=== PATIENT | male | born 1955 | race Caucasian/White ===

== ENCOUNTER 2022-07-06 15:59 | Inpatient (IN) | payer OTHER ==
[2022-07-06 16:59] LABS: Hemoglobin 7.3 g/dL (13.5-17.5); Mean Corpuscular HGB CONC 28.7 g/dL (32.0-36.0); Mean Corpuscular Hemoglobin 15.8 pg (27.0-33.0); Mean Corpuscular Volume 54.9 fl (81.2-95.1); Platelet Count 376 10x3/uL (150-450); RBC Distribution Width 22.7 % (11.5-14.5); Red Blood Cell (RBC) Count 4.63 10x6/uL (4.32-5.72); White Blood Cell (WBC) Count 25.5 10x3/uL (3.5-10.5)
[2022-07-06] MEDS ORDERED: Diltiazem 125 MG/25 ML ONE (17:02)
[2022-07-06 17:06] LABS: MDiff Complete? YES
[2022-07-06 17:15] LABS: ALT (SGPT) 14 U/L (8-55); AST (SGOT) 12 U/L (5-34); Albumin 3.4 g/dL (3.4-4.8); Alkaline Phosphatase 88 U/L (40-110); Anion Gap 14 mmol/L (10-20); BUN (Urea Nitrogen) 31 mg/dL (8.4-25.7); Bilirubin, Total 0.9 mg/dL (0.2-1.2); Calc. Creatinine Clearance 0 mL/min (70-130); Calcium 7.9 mg/dL (7.8-10.44); Carbon Dioxide 24 mmol/L (23-31); Chloride 101 mmol/L (98-107); Estimated GFR 93; Globulin 2.2 g/dL (2.4-3.5); Glucose 120 mg/dL (80-115); Potassium 3.5 mmol/L (3.5-5.1); Protein, Total 5.6 g/dL (5.8-8.1); Sodium 135 mmol/L (136-145)
[2022-07-06 17:38] LABS: CKMB 0.5 ng/mL (0-6.6)
[2022-07-06] MEDS ORDERED: cefTRIAXone\\ROCEPHIN 2 GM VIAL ONE (17:51)
[2022-07-06 18:20] LABS: Band 7 % (5-11); Lymphocytes 2 % (21-51); Monocytes 1 % (0-10); Neutrophil 90 % (42-75)
[2022-07-06 18:21] LABS: Anisocytosis SLIGHT = 6-15 cells (100X) (0-5/hpf); Hypochromia SLIGHT = 6-15 cells (100X) (0-5/hpf); Platelet Morphology Comment Appears Adequate
[2022-07-06 20:09] LABS: Troponin I 0.108 ng/mL (< 0.028)
[2022-07-06] MEDS ORDERED: Senokot S 8.6-50 MG TAB PO PRN (20:13)
[2022-07-06] MEDS ORDERED: Dextrose 5% in Water 1,000 ML IV PRN (20:13)
[2022-07-06] MEDS ORDERED: HYDROcodone/Acetaminophen 5/325 mg Tablet PO PRN (20:13)
[2022-07-06] MEDS ORDERED: Calcium Carbonate 500 MG ChewTAB PO PRN (20:13)
[2022-07-06] MEDS ORDERED: Ondansetron PF 4 MG/2 ML Vial IVP PRN (20:13)
[2022-07-06] MEDS ORDERED: Guaifenesin DM 100-10/5 ML UDCUP PO PRN (20:13)
[2022-07-06] MEDS ORDERED: Dextrose 50% Abboject 50 ML SYRINGE SLOW IVP PRN (20:13)
[2022-07-06] MEDS ORDERED: Diltiazem 125 MG in Sodium Chloride 0.9% 100 ML IVPB SCH (20:15)
[2022-07-06] MEDS ORDERED: Metoprolol Tartrate 25 MG TAB ONE (20:41)
[2022-07-06] MEDS ORDERED: Pantoprazole 40 MG VIAL ONE (20:41)
[2022-07-06] MEDS ORDERED: Atorvastatin Calcium 40 MG TAB ONE (20:42)
[2022-07-06] MEDS: Pantoprazole 40 MG VIAL IVP SCH (20:45)
[2022-07-06] MEDS: Atorvastatin Calcium 40 MG TAB PO SCH (20:45)
[2022-07-06] MEDS ORDERED: Metoprolol Tartrate 25 MG TAB PO SCH (21:00)
[2022-07-06 21:37] LABS: SARS-CoV-2 NAA Rapid Test Not Detected (NotDetected)
[2022-07-06 22:59] LABS: Bilirubin Neg (Negative); Blood, Urine Negative (Negative); Clarity Slightly Cloudy (Clear); Glucose, Urine (Dipstick) Normal (Negative); Ketone, Urine Negative (Negative); Leukocyte Negative (Negative); Nitrite Negative (Negative); Protein, Urine (Dipstick) 15 mg/dl (Neg-Trace)
[2022-07-06 23:21] LABS: Troponin I 0.114 ng/mL (< 0.028)
[2022-07-06 23:57] VITALS: BMI 36.8
[2022-07-07] MEDS ORDERED: Diltiazem 125 MG/25 ML ONE (02:41)
[2022-07-07 04:19] LABS: Anion Gap 14 mmol/L (10-20); BUN (Urea Nitrogen) 29 mg/dL (8.4-25.7); Calc. Creatinine Clearance 134 mL/min (70-130); Calcium 7.8 mg/dL (7.8-10.44); Carbon Dioxide 21 mmol/L (23-31); Chloride 104 mmol/L (98-107); Estimated GFR 95; Glucose 109 mg/dL (80-115); Iron 10 ug/dL (65-175); Iron Binding Capacity, Total 239 mcg/dL (261-462); Potassium 3.8 mmol/L (3.5-5.1); Sodium 135 mmol/L (136-145)
[2022-07-07 04:28] LABS: Ferritin 47.11 ng/mL (22-322); Thyroid Stimulating Hormone 0.502 uIU/mL (0.35-4.94)
[2022-07-07 04:57] LABS: #Basophils 0.1 10x3/uL (0.0-0.2); #Monocytes 2.1 10x3/uL (0.0-1.1); %Basophils 0.3 % (0.0-2.0); %Eosinophils 0.2 % (0.0-6.0); %Lymphocytes 4.7 % (18.0-47.0); %Monocytes 10.3 % (0.0-10.0); %Neutrophils 83.9 % (40.0-75.0); Hemoglobin 6.2 g/dL (13.5-17.5); Mean Corpuscular HGB CONC 29.2 g/dL (32.0-36.0); Mean Corpuscular Hemoglobin 15.7 pg (27.0-33.0); Mean Corpuscular Volume 53.7 fl (81.2-95.1); Platelet Count 331 10x3/uL (150-450); RBC Distribution Width 22.3 % (11.5-14.5); Red Blood Cell (RBC) Count 3.95 10x6/uL (4.32-5.72); White Blood Cell (WBC) Count 20.3 10x3/uL (3.5-10.5)
[2022-07-07 05:10] LABS: MDiff Complete? YES
[2022-07-07 06:06] LABS: Eosinophils 1 % (0-10); Lymphocytes 4 % (21-51); Monocytes 15 % (0-10); Neutrophil 80 % (42-75)
[2022-07-07 06:12] LABS: Anisocytosis SLIGHT = 6-15 cells (100X) (0-5/hpf); Hypochromia MODERATE=16-30 cells (100X) (0-5/hpf); Microcytosis SLIGHT = 6-15 cells (100X) (0-5/hpf); Poikilocytosis SLIGHT = 6-15 cells (100X) (0-5/hpf); Sickle Cells SLIGHT = 1-5 cells (100X) (None Seen)
[2022-07-07 06:13] LABS: Elliptocytes SLIGHT = 2-5 cells (100X) (0-1/hpf); Schistocytes SLIGHT = 2-5 cells (100X) (0-1/hpf)
[2022-07-07 06:14] LABS: Platelet Morphology Comment Appears Adequate
[2022-07-07] MEDS ORDERED: Iron, Sodium Ferric Gluconate 250 MG in Sodium Chloride 0.9% 250 ML 250 ML IVPB SCH (08:00)
[2022-07-07] MEDS ORDERED: Acetaminophen 325 MG TAB ONE ×2 (08:05→16:46)
[2022-07-07] MEDS ORDERED: Pantoprazole 40 MG VIAL ONE (08:06)
[2022-07-07] MEDS: Acetaminophen 325 MG TAB PO PRN ×2 (08:11→16:47)
[2022-07-07] MEDS: Pantoprazole 40 MG VIAL IVP SCH ×2 (09:22→21:25)
[2022-07-07 10:53] LABS: Hemoglobin 6.7 g/dL (13.5-17.5)
[2022-07-07] MEDS: HumaLOG 300 UNITS/3 ML VIAL SC PRN ×2 (12:18→17:45)
[2022-07-07 18:21] LABS: Hemoglobin 8.2 g/dL (13.5-17.5)
[2022-07-07] MEDS: Gabapentin 100 MG CAP PO SCH (21:25)
[2022-07-07] MEDS: Metoprolol Tartrate 25 MG TAB PO SCH (21:26)
[2022-07-07] MEDS: Atorvastatin Calcium 40 MG TAB PO SCH (21:26)
[2022-07-08 04:23] LABS: Hemoglobin 7.3 g/dL (13.5-17.5); Mean Corpuscular HGB CONC 29.1 g/dL (32.0-36.0); Mean Corpuscular Volume 58.5 fl (81.2-95.1); Mean Platelet Volume 9.2 fl (7.4-10.4); Platelet Count 359 10x3/uL (150-450); RBC Distribution Width 27.2 % (11.5-14.5); Red Blood Cell (RBC) Count 4.29 10x6/uL (4.32-5.72)
[2022-07-08 04:35] LABS: Anion Gap 11 mmol/L (10-20); BUN (Urea Nitrogen) 22 mg/dL (8.4-25.7); Calc. Creatinine Clearance 148 mL/min (70-130); Calcium 8.2 mg/dL (7.8-10.44); Carbon Dioxide 24 mmol/L (23-31); Chloride 103 mmol/L (98-107); Estimated GFR 97; Glucose 175 mg/dL (80-115); Potassium 3.8 mmol/L (3.5-5.1); Sodium 134 mmol/L (136-145)
[2022-07-08 04:39] LABS: MDiff Complete? YES
[2022-07-08 04:42] LABS: Band 14 % (5-11); Lymphocytes 4 % (21-51); Monocytes 7 % (0-10); Neutrophil 74 % (42-75); Platelet Morphology Comment Appears Adequate
[2022-07-08 04:48] LABS: Anisocytosis MODERATE=16-30 cells (100X) (0-5/hpf); Elliptocytes SLIGHT = 2-5 cells (100X) (0-1/hpf); Hypochromia SLIGHT = 6-15 cells (100X) (0-5/hpf); Microcytosis MARKED = >30 cells (100X) (0-5/hpf); Schistocytes SLIGHT = 2-5 cells (100X) (0-1/hpf)
[2022-07-08 04:49] LABS: Reflex for Review?? YES
[2022-07-08] MEDS: HumaLOG 300 UNITS/3 ML VIAL SC PRN ×2 (06:50→14:29)
[2022-07-08] MEDS ORDERED: Spironolactone 25 MG TAB PO SCH (08:00)
[2022-07-08] MEDS: Gabapentin 100 MG CAP PO SCH ×2 (08:27→21:25)
[2022-07-08] MEDS: Ferrous Sulfate 325 MG TAB PO SCH (08:28)
[2022-07-08] MEDS: Pantoprazole 40 MG VIAL IVP SCH ×2 (08:28→21:26)
[2022-07-08] MEDS: Metoprolol Tartrate 25 MG TAB PO SCH (08:28)
[2022-07-08] MEDS ORDERED: Lisinopril 20 MG TAB PO SCH (09:00)
[2022-07-08] MEDS ORDERED: Potassium Chloride 20 MEQ TAB PO SCH (10:15)
[2022-07-08 11:11] LABS: Magnesium 1.9 mg/dL (1.6-2.6)
[2022-07-08 18:11] LABS: Hemoglobin 8.8 g/dL (13.5-17.5)
[2022-07-08] MEDS ORDERED: Atorvastatin Calcium 40 MG TAB PO SCH (21:00)
[2022-07-08] MEDS: Metoprolol Tartrate 50 MG TAB PO SCH (21:25)
[2022-07-08] MEDS: Hydrochlorothiazide 25 MG TAB PO SCH (21:25)
[2022-07-09 03:47] LABS: #Basophils 0.1 10x3/uL (0.0-0.2); #Eosinphils 0.1 10x3/uL (0.0-0.5); #Monocytes 2.1 10x3/uL (0.0-1.1); #Neutrophils 12.4 10x3/uL (1.5-8.4); %Basophils 0.3 % (0.0-2.0); %Eosinophils 0.4 % (0.0-6.0); %Lymphocytes 5.4 % (18.0-47.0); %Monocytes 13.3 % (0.0-10.0); %Neutrophils 79.4 % (40.0-75.0); Hemoglobin 8.3 g/dL (13.5-17.5); Mean Corpuscular HGB CONC 29.9 g/dL (32.0-36.0); Mean Corpuscular Hemoglobin 17.8 pg (27.0-33.0); Mean Corpuscular Volume 59.8 fl (81.2-95.1); Mean Platelet Volume 8.8 fl (7.4-10.4); Platelet Count 383 10x3/uL (150-450); RBC Distribution Width 29.6 % (11.5-14.5); Red Blood Cell (RBC) Count 4.65 10x6/uL (4.32-5.72); White Blood Cell (WBC) Count 15.7 10x3/uL (3.5-10.5)
[2022-07-09 03:56] LABS: Anion Gap 10 mmol/L (10-20); BUN (Urea Nitrogen) 22 mg/dL (8.4-25.7); Calc. Creatinine Clearance 144 mL/min (70-130); Calcium 8.3 mg/dL (7.8-10.44); Carbon Dioxide 23 mmol/L (23-31); Chloride 102 mmol/L (98-107); Estimated GFR 96; Glucose 250 mg/dL (80-115); Magnesium 1.7 mg/dL (1.6-2.6); Potassium 4.4 mmol/L (3.5-5.1); Sodium 131 mmol/L (136-145)
[2022-07-09] MEDS: HumaLOG 300 UNITS/3 ML VIAL SC PRN (06:48)
[2022-07-09] MEDS ORDERED: Magnesium Sulfate 4 GM in Sodium Chloride 0.9% 250 ML 250 ML IVPB SCH (07:45)
[2022-07-09] MEDS: Pantoprazole 40 MG VIAL IVP SCH (08:33)
[2022-07-09] MEDS: Hydrochlorothiazide 25 MG TAB PO SCH (08:33)
[2022-07-09] MEDS: Ferrous Sulfate 325 MG TAB PO SCH (08:33)
[2022-07-09] MEDS: Magnesium 2 GM/50 ML(in water) 2 GM in Premix Bag 1 BAG IVPB SCH ×2 (08:33→08:40)
[2022-07-09] MEDS: Metoprolol Tartrate 50 MG TAB PO SCH (08:34)
[2022-07-09] MEDS: Gabapentin 100 MG CAP PO SCH (08:34)
[2022-07-09] MEDS ORDERED: Lisinopril 20 MG TAB PO SCH (09:00)
[2022-07-09] MEDS ORDERED: Spironolactone 25 MG TAB PO SCH (09:00)
[2022-07-09 11:29] VITALS: BP 139/60; TEMP 97.5
== END 2022-07-09 14:07 | disposition home or self-care (01) | DRG 280 ==
LOC: CSHERS 15:59 → CSHERHOLD 20:50 → CSHTELE 07-07 18:08
PROVIDERS: ADMIT Family Medicine; ATTEND Internal Medicine
PROC: 30233N1 Transfusion of Nonautologous Red Blood Cells into Peripheral Vein, Percutaneous Approach (ICD-10-PCS; principal; 2022-07-07)
DX: I48.91 Unspecified atrial fibrillation (principal); J18.9 Pneumonia, unspecified organism; I21.A1 Myocardial infarction type 2; J90 Pleural effusion, not elsewhere classified; J98.11 Atelectasis; R65.10 Systemic inflammatory response syndrome (SIRS) of non-infectious origin without acute organ dysfunction; D50.9 Iron deficiency anemia, unspecified; I25.10 Atherosclerotic heart disease of native coronary artery without angina pectoris; I10 Essential (primary) hypertension; E78.5 Hyperlipidemia, unspecified; E11.9 Type 2 diabetes mellitus without complications; Z20.822 Contact with and (suspected) exposure to COVID-19; Z79.82 Long term (current) use of aspirin; Z79.899 Other long term (current) drug therapy; Z86.16 Personal history of COVID-19; Z95.5 Presence of coronary angioplasty implant and graft; Z79.01 Long term (current) use of anticoagulants; Z82.49 Family history of ischemic heart disease and other diseases of the circulatory system; Z79.4 Long term (current) use of insulin
CPT/HCPCS: 36415; 36416; 36430; 71045; 71275; 80048; 80053; 81003; 82274; 82553; 82607; 82728; 83540; 83550; 83605; 83735; 83880; 84145; 84443; 84484; 85025; 85060; 85379; 86850; 86900; 86901; 87040; 87086; 93005; 93010; 96365; 96375; C9113; J0696; J1815; J1956; J2916; J3475; J7050; P9016